=== PATIENT | female | born 2000 | race Caucasian/White ===

== ENCOUNTER 2024-01-21 18:24 | Emergency (ER) | payer OTHER, SELFPAY ==
[2024-01-21 18:33] VITALS: BP 120/88
[2024-01-21 19:07] LABS: % Basophils 0.3 % (0-2); % Eosinophils 0.8 % (0-6); % Immature Granulocytes 0.2 % (0-0.5); % Lymphocytes 32.5 % (20.5-51.1); % Monocytes 7.8 % (1.7-9.3); % Neutrophils 58.4 % (42.2-75.2); Absolute Eosinophils 0.1 10^3/uL (0-0.7); Absolute Lymphocytes 2.9 10^3/uL (1.2-3.4); Absolute Monocytes 0.7 10^3/uL (0.1-0.6); Absolute Neutrophils 5.2 10^3/uL (1.4-6.5); Hematocrit 39.8 % (37.0-47.0); Hemoglobin 13.8 g/dL (12.0-16.0); Mean Corp Hgb Conc. 34.7 g/dL (33.0-37.0); Mean Corpuscular Hgb 27.9 pg (27.0-31.0); Mean Corpuscular Volume 80.6 fL (81.0-99.0); Mean Platelet Volume 9.7 fL (7.4-10.4); Nucleated Red Blood Cells % 0 %; Platelet Count 351 10^3/uL (130-400); Red Blood Cell Count 4.94 10^6/uL (4.20-5.40); Red Cell Dist. Width 12.7 % (11.5-14.5); White Blood Cell Count 8.9 10^3/uL (4.8-10.8)
[2024-01-21 19:18] LABS: HCG, Serum Qualitative Screen Negative
[2024-01-21 19:24] LABS: ALT (SGPT) 13 U/L (0-35); AST (SGOT) 18 U/L (14-36); Albumin 4.5 g/dl (3.5-5.0); Alkaline Phosphatase 88 U/L (38-126); Blood Urea Nitrogen 8 mg/dl (7-17); Carbon Dioxide 19 mmol/L (22-30); Chloride 108 mmol/L (98-107); Glucose 91 mg/dl (70-99); Potassium 4.1 mmol/L (3.5-5.1); Sodium 137 mmol/L (135-145); Total Bilirubin 0.4 mg/dl (0.2-1.3); Total Protein 7.4 g/dl (6.3-8.2); eGFR > 60.00
== END 2024-01-21 22:50 ==
LOC: EMR 18:24
PROVIDERS: EMERGENCY PHYSICIAN Emergency Medicine
DX: R51.9 Headache, unspecified (principal); R11.0 Nausea; Z53.21 Procedure and treatment not carried out due to patient leaving prior to being seen by health care provider
CPT/HCPCS: 80053; 84703; 85025

== ENCOUNTER → 2024-04-24 14:26 | Outpatient (REF) | payer OTHER, SELFPAY | LOC: WDC 14:26 | PROVIDERS: ATTENDING PHYSICIAN Nurse Practitioner Adult Health; FAMILY PHYSICIAN Pediatrics | DX: N63.20 Unspecified lump in the left breast, unspecified quadrant (principal); N63.21 Unspecified lump in the left breast, upper outer quadrant | CPT/HCPCS: 76642 ==

== ENCOUNTER → 2024-05-21 14:18 | Outpatient (REF) | payer OTHER, SELFPAY | LOC: RAD 14:18 | PROVIDERS: ATTENDING PHYSICIAN Pediatrics | DX: S42.90XA Fracture of unspecified shoulder girdle, part unspecified, initial encounter for closed fracture (principal) | CPT/HCPCS: 73030 ==

== ENCOUNTER → 2024-06-02 16:07 | Outpatient (REF) | payer OTHER, SELFPAY | LOC: MRI 3T 16:07 | PROVIDERS: ATTENDING PHYSICIAN Orthopaedic Surgery; FAMILY PHYSICIAN Pediatrics | DX: M25.512 Pain in left shoulder (principal) | CPT/HCPCS: 73221 ==

== ENCOUNTER → 2025-02-08 06:49 | Outpatient (REF) | payer OTHER, SELFPAY | LOC: MRI 06:49 | PROVIDERS: ATTENDING PHYSICIAN Physician Assistant Surgical; FAMILY PHYSICIAN Pediatrics | DX: M25.562 Pain in left knee (principal) | CPT/HCPCS: 73721 ==

== ENCOUNTER 2025-03-27 10:24 | Emergency (ER) | payer OTHER, SELFPAY ==
[2025-03-27 10:28] VITALS: BP 119/84
--- NOTE | 2025-03-27 10:50 | ED.GENMED ---
History of Present Illness
General
Chief Complaint: Musculo-Skeletal Complaint
Source: patient
Exam Limitations: none
Time Seen by Provider: 03/27/25 10:33
Nursing documentation reviewed up to this point in time: agreed with
History of Present Illness
History of Present Illness:
Patient is a 24-year-old female who reports she was walking up the steps and tripped landing on her right elbow. She is not sure if she injured her shoulder as well. She does complain of posterior right elbow. She denies any or had no other
injuries. She did take ibuprofen prior to arrival. 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
Past History
Social History
Tobacco: Non-smoker
Alcohol: None
Drug: None
Review of Systems
Review of Systems
Allergies reviewed?: Yes
All Other Systems: ROS reviewed and negative except as documented in HPI and ROS
Constitutional: Reports no symptoms
ABD/GI: Denies nausea or vomiting
Musculoskeletal: Reports other (right shoulder and right elbow discomfort )
Skin: Reports no symptoms
Psychiatric: Reports no symptoms
Phy Exam
General Physical Exam
General Presentation: no apparent distress
General age: appears stated age
General Skin: warm and dry
General Habitus: normal
General Mental: alert
General Hydration: appears well hydrated
Neurological Exam
Neurological Exam: alert and oriented x3
Musculoskeletal Exam
Musculoskeletal Exam: other (Right upper extremity strong pulses no obvious swelling to right elbow mildly tender posterior region able to flex and extend with mild discomfort with range of motion no bony tenderness to shoulder mild discomfort with
abduction strong distal pulses normal distal sensation normal cap refill)
Skin Exam
Skin Exam: normal color and warm/dry
Course
Orders/Labs/Results
Orders:
Orders
03/27/25 10:49
Elbow, Right 3 View [CR Elbow - Right Min 3 Views] Urgent
Comment:
Reason For Exam: trauma
Shoulder, Right, Trauma [CR Shoulder, Trauma - Right] Urgent
Comment:
Reason For Exam: trauma
Vital Signs
Initial and Last Documented VS:
Initial Vital Signs
Temp Pulse Resp BP Pulse Ox
98.2 F 96 16 119/84 100
03/27/25 10:28 03/27/25 10:28 03/27/25 10:28 03/27/25 10:28 03/27/25 10:28
Last Documented Vital Signs
Temp Pulse Resp BP Pulse Ox
98.2 F 96 16 119/84 100
03/27/25 10:28 03/27/25 10:28 03/27/25 10:28 03/27/25 10:28 03/27/25 10:28
MDM/Problems Addressed
Differential Diagnosis Includes:
Not limited to contusion versus fracture
MDM/Problems Addressed:
Symptoms consistent with contusion .
patient in no acute distress x-rays negative. Strong distal pulses normal sensation.
*Radiology
Radiology exam reviewed: radiology read reviewed
*Critical Care Note
Total Time (30-74mins, 75-104mins- exclusive of procedures): Not Applicable
ED Attending Note
-
Portions of this chart may have been created with voice recognition software.� Occasional wrong word or��sound alike� substitutions may have occurred due to the inherent limitations of voice recognition software.
Discharge Plan
Departure
Patient Disposition: Home (Routine Discharge)
Date of Disposition: 03/27/25
Time of Disposition: 12:39
Patient with high blood pressure during this ER visit?: No
Condition: Fair
Covid-19: Not Applicable
Discharge Problem:
Contusion
Instructions: Contusion (DC)
Prescriptions:
No Action
beclomethasone dipropionate [Qvar] 8.7 GM aerosol
8.7 gm IH TID PRN (Reason: SOB/ wheezing)
montelukast 4 MG tablet,chewable
4 mg PO DAILY
albuterol sulfate [ProAir HFA] 8.5 GM HFA aerosol inhaler
8.5 gm PUFF Q6H PRN (Reason: bronchospasm) Qty: 1 0RF
Referrals:
Enzo Oneill, DO [Family Provider] -
Activity Restrictions/Additional Instructions:
As discussed there are no obvious fractures.
Symptoms are consistent with contusion. You may intermittently ice and take ibuprofen. Follow-up with family doctor in the next several days.
return if any worsening of symptoms.
Interventions
Interventions:
*Risk Screen - Suicide Last Done: 03/27/25 10:28
*General Assessment Last Done: 03/27/25 10:28
ED-Musculoskeletal Assessment Last Done: 03/27/25 10:44
Discharge Date and Time
Print Language: WELSH
== END 2025-03-27 12:58 | disposition home or self-care (01) ==
LOC: EMR 10:24
PROVIDERS: EMERGENCY PHYSICIAN Emergency Medicine; FAMILY PHYSICIAN Pediatrics
DX: S50.01XA Contusion of right elbow, initial encounter (principal); W10.9XXA Fall (on) (from) unspecified stairs and steps, initial encounter
CPT/HCPCS: 99283; 73030; 73080

== ENCOUNTER → 2025-04-14 11:18 | Outpatient (REF) | payer OTHER, SELFPAY | LOC: PAVMRI 11:18 | PROVIDERS: ATTENDING PHYSICIAN Psychiatry & Neurology Neurology; FAMILY PHYSICIAN Pediatrics | DX: G95.0 Syringomyelia and syringobulbia (principal); Q79.60 Ehlers-Danlos syndrome, unspecified; M54.2 Cervicalgia | CPT/HCPCS: 70553; 72141; A9575 ==

== ENCOUNTER → 2025-04-15 11:03 | Outpatient (REF) | payer OTHER, SELFPAY | LOC: PAVMRI 11:03 | PROVIDERS: ATTENDING PHYSICIAN Psychiatry & Neurology Neurology | DX: G95.0 Syringomyelia and syringobulbia (principal) | CPT/HCPCS: 72146 ==